=== PATIENT | male | born 1970 | race Caucasian/White ===

== ENCOUNTER 2021-11-14 10:54 | Outpatient (CLI) | payer OTHER, SELFPAY ==
--- NOTE | ~2021-11-14 | US_ITS ---
EXAMINATION: US carotid duplex BI DATE: 11/14/2021 11:44 INDICATION: Dizziness and giddiness TECHNIQUE: Grayscale, color Doppler, and pulsed Doppler images of the cervical carotid arteries were obtained. The degree of vessel stenosis is placed in one of the following categories: normal, <50%, 5 0-69%, >=70% but less than near-occlusion, near-occlusion, or total occlusion. Note that percent sten osis relative to normal distal artery lumen diameter is indirectly measured from velocity measurement s as described by Bryan, et al. Radiology 2003; 229:340-346. Notes: Normal: Peak systolic velocity <125 centimeters/sec and no plaque <50%. Peak systolic velocity <125 ( EDV <40; ICA/CCA PSV ratio <2.0; used these factors only a tandem lesions or low cardiac output or co ntralateral disease) 50-69 %: PSV 125-230 (EDV 40-100; ratio 2-4) >= 70% but less than near occlusion: PSV greater than 230 (EDV > 100; ratio> 4.0) Near Occlusion: PSV that is variable; markedly narrowed lumen Occlusion: Absent flow on color/spectral Doppler and no lumen on chavez scale. COMPARISON: None. FINDINGS: RIGHT: The right common carotid artery (CCA) peak systolic velocity (PSV) is 90 cm/s. The right internal car otid artery (ICA) PSV is 71 cm/s. The right ICA end-diastolic velocity (EDV) is 21 cm/s. The right IC A/CCA PSV ratio is 0.8. The external carotid artery (ECA) PSV is 84 cm/s. There is antegrade flow in the right vertebral artery. LEFT: The left CCA PSV is 117 cm/s. The left ICA PSV is 75 cm/s. The left ICA EDV is 29 cm/s. The left ICA/ CCA PSV ratio is 0.6. The ECA PSV is 121 cm/s. There is antegrade flow in the left vertebral artery. IMPRESSION: 1. Less than 50% stenosis in the right internal carotid artery by sonographic criteria. 2. Less than 50% stenosis in the left internal carotid artery by sonographic criteria. Reviewed, dictated and finalized at location A. IMPRESSION: 1. Less than 50% stenosis in the right internal carotid artery by sonographic bernard lazaro. 2. Less than 50% stenosis in the left internal carotid artery by sonographic kinjal ramirez.
== END 2021-11-14 10:55 | disposition home or self-care (01) ==
PROVIDERS: PCP Internal Medicine; Visit Provider Nurse Practitioner
DX: H53.9 Unspecified visual disturbance (principal); R42 Dizziness and giddiness; I65.23 Occlusion and stenosis of bilateral carotid arteries
CPT/HCPCS: 93880

== ENCOUNTER 2022-03-01 07:22 | Outpatient (NON) | payer OTHER, SELFPAY | END 2022-03-01 07:23 | disposition home or self-care (01) | LOC: ANHLAB 03-02 07:24 | PROVIDERS: PCP Internal Medicine; Visit Provider Internal Medicine Gastroenterology | DX: R19.7 Diarrhea, unspecified (principal); Z90.49 Acquired absence of other specified parts of digestive tract; D12.8 Benign neoplasm of rectum | CPT/HCPCS: 88305; 88342 ==

== ENCOUNTER 2022-03-01 12:14 | Day surgery (SDC) | payer OTHER, SELFPAY ==
[2021-10-12 10:41] VITALS: BMI 31.7
--- NOTE | 2021-10-25 08:55 | P.PNAN_ITS ---
Anes - Initial Pre Proc Eval Procedure: Operation Date: 10/26/21 14:00 Proposed Procedures p Diagnositic Colonoscopy - Kaiser Maddox MD Date/Time: 10/25/21 08:55 Surgeon: Kaiser Maddox MD Pre Op Diagnosis: Carlos Patient Data Age: 50 Gender: M Height: 1.7 m Weight: 92 kg Allergies Allergy/AdvReac Type Severity Reaction Status Date / Time No Known Allergies Allergy Verified 10/12/21 10:40 Home Medications Medication Instructions Recorded Confirmed Type sodium sul 1.479 gram-potas ch See Rx Instructions PO PER PKG DIR 10/11/21 10/12/21 Rx 0.188 gram-magnes sul 0.225 gram #24 tabs tablet (Sutab) testosterone 50 mg/5 gram (1 %) 1 tube transdermal QAM #150 grams 10/24/21 Rx transdermal gel (Testim) Results Review: All pre-operative results and documents have been reviewed as part of the pre-o perative evaluation. [facility] Surgical History Surgical History Hx of appendectomy Family History Family History Mother Patient's mother is in good health Father Patient's father is in good health Sibling Patient's sister is in good health Patient's brother is in good health Social History Social History Smoking status: Former smoker Tobacco type: cigarettes Alcohol intake: unknown Substance use type: does not use Spiritual care concerns: No Anes - Eval Final PreProcedure Day of Procedure 10/25/21 08:55 Patient weight: obese Heart: regular rate and rhythm Lungs: clear to auscultation Airway: Mallampati scale class II Neurological: alert and oriented Last oral intake: >/= 8 hours ASA classification: II Emergent: no Anesthetic plan: proceed Anesthesia type and monitoring: general GIVS and standard monitoring Results Review: All pre-operative results and documents have been reviewed as part of the pre- operative evaluation. Informed Consent: The patient's anesthetic plan and its attendant risks and benefits were discussed with the patient/family/POA. Questions were solicited and answers provided to the satisfaction of the patient/family/POA.
[2022-02-14 09:03] VITALS: BMI 32.1
--- NOTE | 2022-02-28 12:36 | PM.HPGS ---
History of Present Illness History of Present Illness Consent: Risks, benefits, and alternatives have been discussed and questions answered. Patient agrees to proceed with procedure. Chief complaint: Diahrrea Narrative: Shaun Rojo is a 51 year old male referred for colonoscopy due to chronic diarrhea with blood. Review of Systems Review of Systems: All systems reviewed & are unremarkable except as noted in HPI and below PMFSH Surgical History Surgical History Hx of appendectomy Family History Family History Mother Patient's mother is in good health Father Patient's father is in good health Sibling Patient's sister is in good health Patient's brother is in good health Social History Social History Smoking packs per day: 1 Smoking cigarettes per day: 20.0 Years smoked: 10 Smoking pack-years: 10.00 Smoking status: Former smoker Tobacco type: cigarettes Alcohol intake: current Substance use: never Substance use type: does not use Living arrangements: with family Spiritual care concerns: No Meds Home Medications and Allergies Home Medications Medication Instructions Recorded Confirmed Type sodium sul 1.479 gram-potas ch See Rx Instructions PO PER PKG DIR 10/11/21 03/01/22 Rx 0.188 gram-magnes sul 0.225 gram #24 tabs tablet (Sutab) testosterone cypionate 200 mg/mL 200 mg IM .every 2 weeks #10 mL 02/07/22 03/01/22 Rx intramuscular oil aripiprazole 10 mg tablet 10 mg PO DAILY 02/14/22 03/01/22 History escitalopram oxalate 10 mg tablet 10 mg PO DAILY 02/14/22 03/01/22 History Allergies Allergy/AdvReac Type Severity Reaction Status Date / Time No Known Allergies Allergy Verified 03/01/22 12:47 Exam Resp: Auscultation: clear to auscultation bilaterally Cardio: Rate: regular rate Rhythm: regular rhythm GI: GI Palp: Yes Soft to palpation and No Tenderness to palpation present (GI) Assessment and Plan Assessment and plan (1) Diarrhea: Code(s): R19.7 - Diarrhea, unspecified Status: Acute Assessment and Plan: Colonoscopy with possible biopsy or polypectomy or cautery or injection of substances.
[2022-03-01 12:40] VITALS: BP 128/96; PULSE 62; RESP 16; TEMP 37.1; O2SAT 98
[2022-03-01 12:48] VITALS: BMI 29.9
--- NOTE | 2022-03-01 12:51 | P.PNAN_ITS ---
Anes - Initial Pre Proc Eval Procedure: Operation Date: 03/01/22 13:45 Proposed Procedures p Diagnostic Colonoscopy - Kaiser Maddox MD Date/Time: 03/01/22 12:51 Surgeon: Kaiser Maddox MD Pre Op Diagnosis: Carlos Patient Data Age: 51 Gender: M Height: 1.7 m Weight: 86.8 kg Allergies Allergy/AdvReac Type Severity Reaction Status Date / Time No Known Allergies Allergy Verified 03/01/22 12:47 Home Medications Medication Instructions Recorded Confirmed Type sodium sul 1.479 gram-potas ch See Rx Instructions PO PER PKG DIR 10/11/21 03/01/22 Rx 0.188 gram-magnes sul 0.225 gram #24 tabs tablet (Sutab) testosterone cypionate 200 mg/mL 200 mg IM .every 2 weeks #10 mL 02/07/22 03/01/22 Rx intramuscular oil aripiprazole 10 mg tablet 10 mg PO DAILY 02/14/22 03/01/22 History escitalopram oxalate 10 mg tablet 10 mg PO DAILY 02/14/22 03/01/22 History Patient hx anesthesia problems: none Family hx anesthesia problems: none Results Review: All pre-operative results and documents have been reviewed as part of the pre- operative evaluation. [facility] Surgical History Surgical History Hx of appendectomy Family History Family History Mother Patient's mother is in good health Father Patient's father is in good health Sibling Patient's sister is in good health Patient's brother is in good health Social History Social History Smoking packs per day: 1 Smoking cigarettes per day: 20.0 Years smoked: 10 Smoking pack-years: 10.00 Smoking status: Former smoker Tobacco type: cigarettes Alcohol intake: current Substance use: never Substance use type: does not use Living arrangements: with family Spiritual care concerns: No Anes - Eval Final PreProcedure Day of Procedure 03/01/22 12:51 Patient weight: obese Heart: regular rate and rhythm Lungs: clear to auscultation Airway: Mallampati scale class II Neurological: alert and oriented Last oral intake: >/= 8 hours ASA classification: II Emergent: no Anesthetic plan: proceed Anesthesia type and monitoring: general GIVS and standard monitoring Results Review: All pre-operative results and documents have been reviewed as part of the pre- operative evaluation. Informed Consent: The patient's anesthetic plan and its attendant risks and benefits were discussed with the patient/family/POA. Questions were solicited and answers provided to the satisfaction of the patient/family/POA.
[2022-03-01] MEDS: LACTATED RINGERS 1,000 ML 150 ML IV CONT (12:54)
[2022-03-01 13:57] VITALS: BP 111/79; PULSE 81; RESP 16; O2SAT 96
[2022-03-01 14:07] VITALS: BP 123/91; PULSE 57; RESP 16; O2SAT 97
[2022-03-01 14:17] VITALS: BP 127/89; PULSE 52; RESP 16; O2SAT 97
--- NOTE | 2022-03-01 14:18 | WPDANESPN ---
Anes - Prog Note Post-Op Date/Time: 03/01/22 14:18 Cardiovascular status: normal Respiratory status: normal Airway patency: baseline Mental status: baseline Post-Op hydration status: normal Vital Signs: Last Vital Signs Temp 37.1 C 03/01/22 12:40 Pulse 57 L 03/01/22 14:07 Resp 16 03/01/22 14:07 BP 123/91 H 03/01/22 14:07 Pulse Ox 97 03/01/22 14:07 O2 Del Method Room Air 03/01/22 14:07 Pain Score (VAS): 0/10 I/O: Intake & Output 02/28/22 03/01/22 03/01/22 23:59 07:59 15:59 Intake Total 600 Balance 600 Patient Feedback: Patient satisfied with anesthetic care.
--- NOTE | 2022-03-01 14:27 | SUR.PHASEII ---
PT AWAKE AND ALERT. DENIES PAIN. DRINKING FLUIDS. ASKING TO GO HOME.
== END 2022-03-01 14:30 | disposition home or self-care (01) ==
PROVIDERS: PCP Internal Medicine; Visit Provider Internal Medicine Gastroenterology
PROC: 0DJD8ZZ Inspection of Lower Intestinal Tract, Via Natural or Artificial Opening Endoscopic (ICD-10-PCS; CPT 45378; principal; 2022-03-01 13:45)
DX: R19.7 Diarrhea, unspecified (principal)
CPT/HCPCS: 45385; 45380; 45382

== ENCOUNTER 2023-07-16 12:45 | Outpatient (CLI) | payer OTHER, SELFPAY ==
[2023-07-20 11:18] LABS: Testosterone Free 44.1 pg/mL (35.0-155.0); Testosterone Total 210 ng/dL (250-1100)
== END 2023-07-16 12:46 | disposition home or self-care (01) ==
LOC: ANHGOSHLAB 12:47
PROVIDERS: PCP Family Medicine; Visit Provider Nurse Practitioner
DX: R79.89 Other specified abnormal findings of blood chemistry (principal)
CPT/HCPCS: 36415; 84402; 84403

== ENCOUNTER 2023-08-10 08:47 | Outpatient (CLI) | payer OTHER, SELFPAY ==
--- NOTE | 2023-08-10 09:04 | EST_ITS ---
Patient Info Name: Shaun Rojo Age: 52 years : 1970 Gender: Male Ht: 67 in Wt: 190 lbs BSA: 2.04 m2 HR: 63 bpm BP: 111 / 60 mmHg Heart Rhythm: Sinus Rhythm Exam Date: 08/10/2023 9:18 AM Exam Location: Echo Lab Patient Status: Outpatient Admit Date: 08/10/2023 Staff Ordering Physician: Yokasta Mckeon Attending Provider: Yokasta Mckeon Exercise Technologist: Cammie Victor CT Exercise Physician: Albert Ramey DO Exam Type: CA stress test treadmill Study Info Indications R07.89 - Other chest pain A treadmill exercise stress test was performed. Summary 1. 1. Negative Arnel exercise stress test for ischemic ST changes by ECG criteria. 2. 2. Good functional capacity, achieving 10 METs of workload. 3. 3. Appropriate HR response to exercise. 4. 4. Appropriate HR recovery at 1 minute post exercise. 5. 5. No imaging with stress testing. 6. 6. Patient informed of the above results. Protocol: Arnel Stress ECG Details Stage: REST Duration (min): 0 min : 58 sec Speed (mph): 0.0 Grade (%): 0 HR (bpm): 64 SBP (mmHg): 111 DBP (mmHg): 60 METS: --- Stage: REST Duration (min): 16 min : 39 sec Speed (mph): 0.0 Grade (%): 0 HR (bpm): 64 SBP (mmHg): 111 DBP (mmHg): 60 METS: --- Stage: STAGE 1 Duration (min): 1 min : 0 sec Speed (mph): 1.7 Grade (%): 10 HR (bpm): 83 SBP (mmHg): 111 DBP (mmHg): 60 METS: --- Stage: STAGE 1 Duration (min): 2 min : 0 sec Speed (mph): 1.7 Grade (%): 10 HR (bpm): 92 SBP (mmHg): 111 DBP (mmHg): 60 METS: --- Stage: STAGE 1 Duration (min): 3 min : 0 sec Speed (mph): 1.7 Grade (%): 10 HR (bpm): 82 SBP (mmHg): 136 DBP (mmHg): 78 METS: --- Stage: STAGE 2 Duration (min): 1 min : 0 sec Speed (mph): 2.5 Grade (%): 12 HR (bpm): 91 SBP (mmHg): 136 DBP (mmHg): 78 METS: --- Stage: STAGE 2 Duration (min): 2 min : 0 sec Speed (mph): 2.5 Grade (%): 12 HR (bpm): 95 SBP (mmHg): 146 DBP (mmHg): 78 METS: --- Stage: STAGE 2 Duration (min): 3 min : 0 sec Speed (mph): 2.5 Grade (%): 12 HR (bpm): 102 SBP (mmHg): 146 DBP (mmHg): 78 METS: --- Stage: STAGE 3 Duration (min): 1 min : 0 sec Speed (mph): 3.4 Grade (%): 14 HR (bpm): 120 SBP (mmHg): 175 DBP (mmHg): 78 METS: --- Stage: STAGE 3 Duration (min): 2 min : 0 sec Speed (mph): 3.4 Grade (%): 14 HR (bpm): 134 SBP (mmHg): 175 DBP (mmHg): 78 METS: --- Stage: STAGE 3 Duration (min): 2 min : 59 sec Speed (mph): 4.2 Grade (%): 16 HR (bpm): 146 SBP (mmHg): 188 DBP (mmHg): 87 METS: --- Stage: RECOVERY Duration (min): 1 min : 0 sec Speed (mph): 0.0 Grade (%): 0 HR (bpm): 133 SBP (mmHg): 188 DBP (mmHg): 87 METS: --- Stage: RECOVERY Duration (min): 2 min : 0 sec Speed (mph): 0.0 Grade (%): 0 HR (bpm): 103 SBP (mmHg): 188 DBP (mmHg): 87 ME
== END 2023-08-10 08:48 | disposition home or self-care (01) ==
PROVIDERS: PCP Family Medicine; Visit Provider Nurse Practitioner
DX: R07.89 Other chest pain (principal)
CPT/HCPCS: 93017

== ENCOUNTER 2023-08-28 06:24 | Day surgery (SDC) | payer OTHER, SELFPAY ==
[2023-07-24 13:57] VITALS: BMI 29.4
[2023-08-03 09:13] VITALS: BMI 29.0
--- NOTE | 2023-08-13 13:07 | P.HP_ITS ---
History of Present Illness History of Present Illness Consent: Risks, benefits, and alternatives have been discussed and questions answered. Patient agrees to proceed with procedure. Chief complaint: Hemorrhage of anus and rectum Narrative: Shaun Rojo is a 52 year old male was referred for colonoscopy due to the presence of blood in his stools. He also has had polyps removed about 18 months ago. [facility] Surgical History Surgical History Hx of appendectomy Family History Family History Mother Patient's mother is in good health Father Patient's father is in good health Sibling Patient's sister is in good health Patient's brother is in good health Social History Social History Smoking packs per day: 1 Smoking cigarettes per day: 20.0 Years smoked: 10 Smoking pack-years: 10.00 Smoking status: Current every day smoker Tobacco type: cigarettes Alcohol intake: current Substance use: never Substance use type: marijuana Lack of Transportation: No Lack of Food: Never True Current Housing: I Have Housing Concerned About Future Housing: No Difficulty Paying Gas/Electric Bills: No Difficulty Paying for Meds: No Currently Unemployed: No Education: Associate Degree Difficulty w/ Childcare or Family Care: No Living arrangements: with family Spiritual care concerns: No Meds Home Medications and Allergies Home Medications Medication Instructions Recorded Confirmed Type escitalopram oxalate 20 mg tablet 20 mg PO DAILY #90 tabs 07/17/23 08/03/23 Rx Allergies Allergy/AdvReac Type Severity Reaction Status Date / Time No Known Allergies Allergy Verified 08/03/23 09:13 Assessment and Plan Assessment and plan (1) Rectal bleeding: Code(s): K62.5 - Hemorrhage of anus and rectum Status: Acute Assessment and Plan: Colonoscopy with possible biopsy or polypectomy or cautery or injection of substances.
--- NOTE | 2023-08-27 14:00 | PM.HPGS ---
History of Present Illness History of Present Illness Consent: Risks, benefits, and alternatives have been discussed and questions answered. Patient agrees to proceed with procedure. Chief complaint: Hemorrhage of anus and rectum Narrative: Shaun Rojo is a 52 year old male referred for colonoscopy due to blood in his stools. He had 2 non adenomatous polyps removed about 2 years ago. At that time he was also noted to have large internal hemorrhoids. Review of Systems Review of Systems: All systems reviewed & are unremarkable except as noted in HPI and below PMFSH Surgical History Surgical History Hx of appendectomy Family History Family History Mother Patient's mother is in good health Father Patient's father is in good health Sibling Patient's sister is in good health Patient's brother is in good health Social History Social History Smoking packs per day: 1 Smoking cigarettes per day: 20.0 Years smoked: 10 Smoking pack-years: 10.00 Smoking status: Current every day smoker Tobacco type: cigarettes Alcohol intake: current Substance use: never Substance use type: marijuana Lack of Transportation: No Lack of Food: Never True Current Housing: I Have Housing Concerned About Future Housing: No Difficulty Paying Gas/Electric Bills: No Difficulty Paying for Meds: No Currently Unemployed: No Education: Associate Degree Difficulty w/ Childcare or Family Care: No Living arrangements: with family Spiritual care concerns: No Meds Home Medications and Allergies Home Medications Medication Instructions Recorded Confirmed Type escitalopram oxalate 20 mg tablet 20 mg PO DAILY #90 tabs 07/17/23 08/28/23 Rx testosterone cypionate 100 mg/mL 100 mg subcut .every 2 weeks #10 mL 08/14/23 08/28/23 Rx intramuscular oil Allergies Allergy/AdvReac Type Severity Reaction Status Date / Time No Known Allergies Allergy Verified 08/28/23 07:45 Exam Const: General: alert Orientation/consciousness: patient oriented x3 Resp: Auscultation: clear to auscultation bilaterally Cardio: Rhythm: regular rhythm GI: GI Palp: Yes Soft to palpation and No Tenderness to palpation present (GI) Neuro: General: patient oriented x3 Assessment and Plan Assessment and plan (1) Rectal bleeding: Code(s): K62.5 - Hemorrhage of anus and rectum Status: Acute Assessment and Plan: Colonoscopy with possible biopsy or polypectomy or cautery or injection of substances.
--- NOTE | 2023-08-28 07:18 | WPDANESEPPF ---
Anes - Initial Pre Proc Eval Procedure: Operation Date: 08/28/23 09:00 Proposed Procedures p Diagnostic Colonoscopy - Kaiser Maddox MD Date/Time: 08/28/23 07:18 Surgeon: Kaiser Maddox MD Pre Op Diagnosis: Hemorrhage of anus and rectum Patient Data Age: 52 Gender: M Height: 1.7 m Weight: 84 kg Allergies Allergy/AdvReac Type Severity Reaction Status Date / Time No Known Allergies Allergy Verified 08/28/23 07:45 Home Medications Medication Instructions Recorded Confirmed Type escitalopram oxalate 20 mg tablet 20 mg PO DAILY #90 tabs 07/17/23 08/28/23 Rx testosterone cypionate 100 mg/mL 100 mg subcut .every 2 weeks #10 mL 08/14/23 08/28/23 Rx intramuscular oil Patient hx anesthesia problems: none Family hx anesthesia problems: none Results Review: All pre-operative results and documents have been reviewed as part of the pre-operative evaluation. [facility] Surgical History Surgical History Hx of appendectomy Family History Family History Mother Patient's mother is in good health Father Patient's father is in good health Sibling Patient's sister is in good health Patient's brother is in good health Social History Social History (Updated 08/28/23 @ 08:18 by Vj Dickey DO) Smoking packs per day: 1 Smoking cigarettes per day: 20.0 Years smoked: 10 Smoking pack-years: 10.00 Smoking status: Current every day smoker Tobacco type: cigarettes Alcohol intake: current Alcohol use details: most days, sometimes 0-2, sometimes 7-8 Substance use: current Substance use type: marijuana Other substance usage details: daily Lack of Transportation: No Lack of Food: Never True Current Housing: I Have Housing Concerned About Future Housing: No Difficulty Paying Gas/Electric Bills: No Difficulty Paying for Meds: No Currently Unemployed: No Education: Associate Degree Difficulty w/ Childcare or Family Care: No Living arrangements: with family Spiritual care concerns: No Anes - Eval Final PreProcedure Day of Procedure 08/28/23 07:18 Patient weight: overweight Heart: regular rate and rhythm Lungs: clear to auscultation Airway: Mallampati scale class II Neurological: alert and oriented Last oral intake: >/= 8 hours ASA classification: III Emergent: no Anesthetic plan: proceed Anesthesia type and monitoring: general GIVS and standard monitoring Results Review: All pre-operative results and documents have been reviewed as part of the pre-operative evaluation. Informed Consent: The patient's anesthetic plan and its attendant risks and benefits were discussed with the patient/family/POA. Questions were solicited and answers provided to the satisfaction of the patient/family/POA.
[2023-08-28 07:53] VITALS: BP 113/86; PULSE 63; RESP 18; TEMP 36.8; O2SAT 98; BMI 28.3
[2023-08-28] MEDS: LACTATED RINGERS 1,000 ML 150 ML IV CONT (08:06)
[2023-08-28] MEDS: SIMETHICONE ORAL SUSPENSION 20 MG/0.3 ML 30 ML BOTTLE 0.6 ML IRRIGATION (08:47)
[2023-08-28 08:57] VITALS: BP 95/62; PULSE 60; RESP 14; O2SAT 95
[2023-08-28 09:07] VITALS: BP 101/78; PULSE 55; RESP 14; O2SAT 98
[2023-08-28 09:17] VITALS: BP 108/69; PULSE 54; RESP 16; O2SAT 100
--- NOTE | 2023-08-28 12:22 | WPDANESPN ---
Anes - Prog Note Post-Op Date/Time: 08/28/23 12:22 Cardiovascular status: normal Respiratory status: normal Airway patency: baseline Mental status: baseline Post-Op hydration status: normal Vital Signs: Last Vital Signs Temp 36.8 C 08/28/23 07:53 Pulse 54 L 08/28/23 09:17 Resp 16 08/28/23 09:17 BP 108/69 08/28/23 09:17 Pulse Ox 100 08/28/23 09:17 O2 Del Method Room Air 08/28/23 09:17 Pain Score (VAS): 0 I/O: Intake & Output 08/27/23 08/28/23 08/28/23 23:59 07:59 15:59 Intake Total 600 Balance 600 Post-procedural complaints: none Patient Feedback: Patient satisfied with anesthetic care. Other Findings: Patient vital signs back to baseline. Patient denies nausea and vomiting. Patient's pain under control. Patient OK for discharge.
== END 2023-08-28 09:34 | disposition home or self-care (01) ==
PROVIDERS: PCP Family Medicine; Visit Provider Internal Medicine Gastroenterology
PROC: 0DJD8ZZ Inspection of Lower Intestinal Tract, Via Natural or Artificial Opening Endoscopic (ICD-10-PCS; CPT 45378; principal; 2023-08-28 09:00)
DX: K62.5 Hemorrhage of anus and rectum (principal); K57.30 Diverticulosis of large intestine without perforation or abscess without bleeding; K64.1 Second degree hemorrhoids
CPT/HCPCS: 45378